=== PATIENT | female | born 1955 | race Caucasian/White ===

== ENCOUNTER 2021-02-25 13:22 | Emergency (ER) | payer MEDICARE ==
[~2021-02-25] VITALS: Ht 157.5 cm; Wt 97.7 kg
[2021-02-25 14:19] VITALS: BP 167/71
[2021-02-25] MEDS ORDERED: HYDROcodone/acetaminophen 5mg/325mg tablet PO ONE (14:30)
[2021-02-25] MEDS ORDERED: LIDOcaine 1% W/epiNEPHrine 1:200,000 10ml vial IJ ONE (14:30)
--- NOTE | 2021-02-25 15:36 | NUR ---
finger numbed up by [employer] worker and cleaned
[2021-02-25] MEDS ORDERED: HYDR-3965 PO (15:37)
[2021-02-25] MEDS ORDERED: AMOX-422 PO (15:37)
== END 2021-02-25 16:36 | disposition home or self-care (01) ==
LOC: ER 13:23 → EDBD 13:23 → ER 16:36
DX: S62.632A Displaced fracture of distal phalanx of right middle finger, initial encounter for closed fracture (principal); S61.212A Laceration without foreign body of right middle finger without damage to nail, initial encounter; E11.9 Type 2 diabetes mellitus without complications; Z79.2 Long term (current) use of antibiotics; X58.XXXA Exposure to other specified factors, initial encounter; Y93.89 Activity, other specified; Y92.89 Other specified places as the place of occurrence of the external cause; Y99.8 Other external cause status
CPT/HCPCS: 11760; 73140; 99284; J3490